=== PATIENT | male | born 1995 ===

== ENCOUNTER 2020-07-17 22:03 | Emergency (ER) | payer MEDICAID ==
--- NOTE | 2020-07-17 22:31 | EDM.PDOC ---
ED HPI GENERAL MEDICAL PROBLEM - General Chief Complaint: General Stated Complaint: BLEEDING Time Seen by Provider: 07/17/20 22:28 Source of Information: Reports: Patient History Limitations: Reports: No Limitations - History of Present Illness INITIAL COMMENTS - FREE TEXT/NARRATIVE: Rene has had 2 stools with bright red blood. His stools tend to be large,but no obstipation reported or diarrhea. He has autism. This all happened today - Related Data Allergies Allergy/AdvReac Type Severity Reaction Status Date / Time No Known Allergies Allergy Verified 07/17/20 22:11 Home Meds: Home Meds Divalproex Sodium [Divalproex Sodium ER] 2 tab PO DAILY 07/17/20 [History] Fluticasone Propionate [Flonase] 1 spray NASBOTH DAILY 07/17/20 [History] Levothyroxine [Synthroid] 50 mcg PO DAILY 07/17/20 [History] Multivits w-Fe,Other Min/Lut [Theratrum Complete] 1 tab PO DAILY 07/17/20 [History] Propranolol [Inderal] 20 mg PO BID 07/17/20 [History] cloZAPine 175 mg PO DAILY 07/17/20 [History] Past Medical History Cardiovascular History: Reports: Hypertension Psychiatric History: Reports: Autism Endocrine/Metabolic History: Reports: Hypothyroidism Social & Family History - Tobacco Use Tobacco Use Status *Q: Never Tobacco User - Caffeine Use Caffeine Use: Reports: Coffee, Soda - Recreational Drug Use Recreational Drug Use: No ED ROS GENERAL - Review of Systems Review Of Systems: Comprehensive ROS is negative, except as noted in HPI. ED EXAM, GENERAL - Physical Exam Exam: See Below Exam Limited By: No Limitations General Appearance: Alert, WD/WN, No Apparent Distress Ears: Normal External Exam Cardiovascular: Normal Peripheral Pulses GI/Abdominal: Normal Bowel Sounds, Non-Tender (Male) Exam: No Hernia, Circumcised Rectal (Males) Exam: Bloody Stool. No: Tenderness Back Exam: Normal Inspection Course - Vital Signs Last Recorded V/S: Last Vital Signs Temp 97.9 F 07/17/20 22:15 Pulse 109 H 07/17/20 22:15 Resp 18 07/17/20 22:15 BP 156/86 H 07/17/20 22:15 Pulse Ox 99 07/17/20 22:15 - Orders/Labs/Meds Labs: Laboratory Tests 07/17/20 07/17/20 07/17/20 Range/Units 22:40 22:40 22:40 WBC 8.1 (3.2-10.1) x10-3/uL RBC 4.56 (3.90-5.90) x10(6)uL Hgb 13.9 (12.9-17.7) g/dL Hct 41.9 (38.3-50.1) % MCV 92.0 (80.8-98.7) fL MCH 30.4 (27.0-33.3) pg MCHC 33.1 (28.7-35.3) g/dL RDW 14.2 (12.4-15.0) % Plt Count 301 (117-477) x10(3)uL MPV 8.0 (6.7-11.0) fL Neut % (Auto) 49.8 (40.3-71.8) % Lymph % (Auto) 34.4 (15.8-45.3) % [place] % (Auto) 13.3 (5.5-15.2) % Eos % (Auto) 2.0 (0.1-6.8) % Baso % (Auto) 0.5 (0.3-3.8) % Neut # (Auto) 4.0 (1.7-6.9) x10-3/uL Lymph # (Auto) 2.8 (0.5-4.5) x10-3/uL [place] # (Auto) 1.1 (0.0-1.2) x10-3/uL Eos # (Auto) 0.2 (0.0-0.6) x10-3/uL Baso # (Auto) 0.0 (0.0-0.3) x10-3/uL PT 10.7 (9.0-11.1) sec INR 0.99 L (1.00-1.24) Sodium 138 (135-145) mmol/L Potassium 3.9 (3.5-5.3) mmol/L Chloride 100 (100-110) mmol/L Carbon Dioxide 26 (21-32) mmol/L BUN 16 (7-18) mg/dL Creatinine 0.9 (0.70-1.30) mg/dL Est Cr Clr Drug Dosing TNP Estimated GFR (MDRD) > 60 (>60) BUN/Creatinine Ratio 17.8 (9-20) Glucose 204 H (80-116) mg/dL Calcium 9.2 (8.6-10.2) mg/dL Total Bilirubin 0.3 (0.1-1.3) mg/dL AST 25 (5-25) IU/L ALT 66 H (12-36) U/L Alkaline Phosphatase 110 (56-112) IU/L Total Protein 7.8 (6.0-8.0) g/dL Albumin 4.1 (3.5-5.2) g/dL Globulin 3.7 g/dL Albumin/Globulin Ratio 1.1 Departure - Departure Time of Disposition: 05:59 Disposition: Home, Self-Care 01 Condition: Good Clinical Impression: BRBPR (bright red blood per rectum) - Discharge Information Instructions: Rectal Bleeding Referrals: PCP,None [Primary Care Provider] - Forms: ED Department Discharge Additional Instructions: follow up on MondayJuly 20 in the clinic with Dr Mayen. Sepsis Event Note (ED) - Evaluation Sepsis Screening Result: No Definite Risk - Focused Exam Vital Signs: Vital Signs Temp Pulse Resp BP Pulse Ox 07/17/20 22:15 97.9 F 109 H 18 156/86 H 99 - Problem List & Annotations (1) BRBPR (bright red blood per rectum) SNOMED Code(s): 69089040 Code(s): K62.5 - HEMORRHAGE OF ANUS AND RECTUM Status: Acute - Problem List Review Problem List Initiated/Reviewed/Updated: Yes - Assessment/Plan Plan: CBC,CMP all WNL. Follow up on Monday,may need referral to General Surgery for a c scope
== END 2020-07-17 23:04 | disposition home or self-care (01) ==
LOC: FB.ED 22:03
DX: K62.5 Hemorrhage of anus and rectum (principal); F84.0 Autistic disorder; I10 Essential (primary) hypertension; E03.9 Hypothyroidism, unspecified; Z79.899 Other long term (current) drug therapy
CPT/HCPCS: 36415; 80053; 85025; 85610; 99284

== ENCOUNTER 2025-02-04 10:25 | Emergency (ER) | payer MEDICAID ==
[2025-02-04] MEDS: Sodium Chloride 0.9% 10 ML Syringe FLUSH PRN (11:00)
[2025-02-04 11:09] LABS: BASOPHILS ABSOLUTE AUTO 0.1 x10-3/uL (0.0-0.3); BASOPHILS PERCENT AUTO 0.6 % (0.3-3.8); EOSINOPHILS ABSOLUTE AUTO 0.2 x10-3/uL (0.0-0.6); EOSINOPHILS PERCENT AUTO 1.6 % (0.1-6.8); LYMPHOCYTES ABSOLUTE AUTO 1.9 x10-3/uL (0.5-4.5); LYMPHOCYTES PERCENT AUTO 18.4 % (15.8-45.3); MEAN PLATELET VOLUME 7.4 fL (6.7-11.0); MONOCYTES ABSOLUTE AUTO 1.5 x10-3/uL (0.0-1.2); MONOCYTES PERCENT AUTO 14.4 % (5.5-15.2); NEUTROPHILS ABSOLUTE AUTO 6.8 x10-3/uL (1.7-6.9); NEUTROPHILS PERCENT AUTO 65.0 % (40.3-71.8); PLATELET COUNT,PLT 172 x10(3)uL (117-477); RED BLOOD CELL COUNT 3.82 x10(6)uL (3.90-5.90); RED CELL DISTRIBUTION WIDTH 14.2 % (12.4-15.0); WHITE BLOOD CELL COUNT,WBC 10.5 x10-3/uL (3.2-10.1)
[2025-02-04 11:14] LABS: BLOOD UREA NITROGEN,BUN 14 mg/dL (7-18); CARBON DIOXIDE,CO2 27 mmol/L (21-32); CHLORIDE,CL 99 mmol/L (100-110); CREATININE 0.8 mg/dL (0.70-1.30); ESTIMATED GFR 123 mL/min (>60); GLUCOSE RANDOM 127 mg/dL (80-116); POTASSIUM,K 4.3 mmol/L (3.5-5.3); SODIUM,NA 133 mmol/L (135-145)
[2025-02-04 11:20] LABS: A/G RATIO 0.8; ALANINE AMINOTRANSFERASE,ALT 28 U/L (12-36); ASPARTATE AMNIOTRANSFERASE,AST 15 IU/L (5-25); BILIRUBIN TOTAL 0.5 mg/dL (0.1-1.3); PROTEIN TOTAL,TP 7.3 g/dL (6.0-8.0)
[2025-02-04 11:21] LABS: LACTIC ACID 1.1 mmol/L (0.4-2.0)
== END 2025-02-04 12:30 ==
LOC: FB.ED 10:25
DX: N39.0 Urinary tract infection, site not specified (principal); E87.1 Hypo-osmolality and hyponatremia; E86.0 Dehydration; I10 Essential (primary) hypertension; E03.9 Hypothyroidism, unspecified; Z88.8 Allergy status to other drugs, medicaments and biological substances; Z79.890 Hormone replacement therapy; Z79.899 Other long term (current) drug therapy
CPT/HCPCS: 36415; 80053; 83605; 85025; 96360; 99283-25; J7030